=== PATIENT | male | born 1975 | race Two or more races ===

== ENCOUNTER 2020-05-17 17:10 | Emergency (ER) | payer MEDICARE ==
[~2020-05-17] VITALS: Ht 177.8 cm; Wt 72.6 kg
[2020-05-17] MEDS ORDERED: Ketorolac 30mg Inj IM ONE (17:15)
--- NOTE | 2020-05-17 18:29 | Emergency Room Report ---
History of Present Illness General Chief Complaint: Pain Source: Patient Present Illness HPI 45-year-old male who is on prep Truvada and has history of anxiety taking Effexor brought in by paramedics due to left ankle pain and swelling x1 day. Patient reports that he might have a spider bite and feels like something is moving there. Swelling is noted with ecchymosis posterior ankle. Minimal calf tenderness noted. Denies any fall or injury, however patient appears to be poor historian under the influence of unknown substance stents. Denies any chest pain shortness of breath. Denies fever and chills, cough or congestion, abdominal pain nausea vomiting diarrhea. Allergies: Coded Allergies: No Known Allergies (Unverified , 05/17/20) COVID-19 Screening Contact w/high risk pt: No Experienced COVID-19 symptoms?: No COVID-19 Testing performed SOLAR PANEL TECHNICIAN: No Patient History Past Medical History: see triage record Past Surgical History: none Pertinent Family History: none Immunizations: UTD Reviewed Nursing Documentation: PMH: Agreed; PSxH: Agreed Nursing Documentation-PMH Past Medical History: No History, Except For History Of Psychiatric Problem: Yes - depression Review of Systems All Other Systems: negative except mentioned in HPI Physical Exam Vital Signs Date Time Temp Pulse Resp B/P (MAP) Pulse Ox O2 Delivery O2 Flow Rate FiO2 05/17/20 17:06 98.2 81 18 117/86 (96) 100 Room Air Sp02 EP Interpretation: reviewed General Appearance: no apparent distress, alert, GCS 15, non-toxic Head: normocephalic, atraumatic Eyes: bilateral eye normal inspection, bilateral eye PERRL ENT: hearing grossly normal, normal pharynx, no angioedema, normal voice Neck: full range of motion, supple/symm/no masses Respiratory: chest non-tender, lungs clear, normal breath sounds, speaking full sentences Cardiovascular #1: regular rate, rhythm, no edema, no murmur Cardiovascular #2: 2+ dorsalis pedis (R), 2+ dorsalis pedis (L) Gastrointestinal: normal bowel sounds, non tender, soft, non-distended, no guarding, no rebound Genitourinary: no CVA tenderness Musculoskeletal: back normal, calf tenderness, non-tender, swelling - Left ankle and foot, other - Negative Fontaine's Neurologic: alert, motor strength/tone normal, oriented x3, sensory intact, responsive, speech normal Psychiatric: judgement/insight normal, memory normal, mood/affect normal, no suicidal/homicidal ideation Skin: no rash Lymphatic: no adenopathy Procedures Splinting Splinting : Consent: Verbal Location: left ankle Hand-Made Type: plaster Splint: poserior short Pre-Proc Neuro Vasc Exam: normal Post-Proc Neuro Vasc Exam: normal Patient Tolerated: Well Complications: None Progress crutches Medical Decision Making PA Attestation All diagnoses and treatment plans were reviewed and discussed with my supervising physician Dr. Felton Diagnostic Impression: Primary Impression: Achilles tendon injury Additional Impression: Ankle sprain ER Course 45-year-old male who is on prep Truvada and has history of anxiety taking Effexor brought in by paramedics due to left ankle pain and swelling x1 day. Patient reports that he might have a spider bite and feels like something is moving there. Swelling is noted with ecchymosis posterior ankle. Minimal calf tenderness noted. Denies any fall or injury, however patient appears to be poor historian under the influence of unknown substance stents. Denies any chest pain shortness of breath. Denies fever and chills, cough or congestion, abdominal pain nausea vomiting diarrhea. Ddx considered but are not limited to: ankle sprain, ankle strain, ankle fracture, ankle contusion, Achilles rupture Vital signs: are WNL, pt. is afebrile H&PE are most consistent with: Achillis tendon injury, ankle sprain ORDERS: ankle x-ray, venous duplex ultrasound, motrin, robaxin ED INTERVENTIONS: Toradol DISCHARGE: At this time pt. is stable for d/c to home. Will provide printed patient care instructions, and any necessary prescriptions. Care plan and follow up instructions have been discussed with the patient prior to discharge. Take medication as directed, follow-up with relationship specialist, worsening symptoms return to the emergency room Other X-Ray Diagnostic Results Other X-Ray Diagnostic Results : X-Ray ordered: Left ankle x-ray # of Views/Limited Vs Complete: 3 View Indication: Pain EP Interpretation: Yes PA Xray: Interpretation reviewed, by supervising MD, and agrees with findings. Interpretation: no dislocation, no soft tissue swelling, no fractures Impression: No acute disease Electronically Signed by: Mercy Ramirez PA-C CT/MRI/US Diagnostic Results CT/MRI/US Diagnostic Results : Imaging Test Ordered: Venous duplex ultrasound left lower extremity Impression no DVT Last Vital Signs Date Time Temp Pulse Resp B/P (MAP) Pulse Ox O2 Delivery O2 Flow Rate FiO2 05/17/20 18:01 98.2 05/17/20 17:06 81 18 117/86 (96) 100 Room Air Disposition: HOME, SELF-CARE Condition: Stable Referrals: NOT CHOSEN IPA/MD,REFERRING (PCP) Patient Instructions: Achilles Tendinitis With Rehab-SportsMed, Ankle Sprain, [id number] Additional Instructions: Take medication as directed, follow-up with relationship specialist, worsening symptoms return to the emergency room Mercy Childs May 17, 2020 18:29
[2020-05-17] MEDS ORDERED: ROBAXIN-500MG ORAL (19:40)
[2020-05-17] MEDS ORDERED: IBUPROFEN600 M1 ORAL (19:40)
[2020-05-17 20:05] VITALS: BP 117/86
--- NOTE | 2020-05-18 16:18 | Diagnostic Imaging Report ---
Indication: Pain, trauma Technique: 3 views of the left ankle Comparison: none Findings: No acute fractures. No dislocations. The joint spaces are preserved Impression: Negative
--- NOTE | 2020-05-18 16:20 | Diagnostic Imaging Report ---
Indication: Left lower extremity edema Technique: Grayscale and duplex images of the left lower extremity veins Comparison: None Findings: On the left, grayscale and duplex images demonstrate no evidence of intraluminal thrombus. Normal phasic Doppler waveforms, demonstrating normal augmentation response and no evidence of valvular insufficiency. Greater saphenous vein(s) and tibial veins are patent. Normal compressibility. Impression: Negative for evidence of lower extremity deep venous thrombosis on the left
== END 2020-05-17 20:05 | disposition home or self-care (01) ==
LOC: EDBD 17:10 → EMR 17:25
DX: S93.402A Sprain of unspecified ligament of left ankle, initial encounter (principal); S86.002A Unspecified injury of left Achilles tendon, initial encounter; F32.9 Major depressive disorder, single episode, unspecified; F41.9 Anxiety disorder, unspecified; Z79.899 Other long term (current) drug therapy; X58.XXXA Exposure to other specified factors, initial encounter; Y92.9 Unspecified place or not applicable
CPT/HCPCS: 29515; 73610; 93971; 96372; 99284; J1885